=== PATIENT | female | born 1945 | race Two or more races ===

== ENCOUNTER 2023-05-25 06:25 | Day surgery (SDC) | payer OTHER ==
[2023-05-25] MEDS ORDERED: DIPHENHYDRAMINE HCL 50 MG/ML VIAL 1ML IV ONE (12:30)
[2023-05-25] MEDS ORDERED: MIDAZOLAM HCL 2 MG/2 ML VIAL IV ONE (12:30)
[2023-05-25] MEDS ORDERED: fentaNYL CITRATE 50 MCG/ML AMPUL IV ONE (12:30)
[2023-05-25] MEDS ORDERED: NALOXONE HCL 0.4 MG/ML AMPUL IV ONE (12:30)
== END 2023-05-25 22:08 | disposition home or self-care (01) ==
LOC: AMB-ENDOS 06:25
PROVIDERS: ATTEND Surgery
DX: K57.30 Diverticulosis of large intestine without perforation or abscess without bleeding (principal); K64.8 Other hemorrhoids; R19.5 Other fecal abnormalities